=== PATIENT | female | born 1950 | race Caucasian/White ===

== ENCOUNTER 2017-06-25 07:08 | Outpatient (CLI) | payer MEDICARE, BC ==
--- NOTE | 2017-06-26 13:33 | Mammography Report ---
DATE OF SERVICE: 06/25/2017 DIGITAL BILATERAL SCREENING MAMMOGRAM: 06/25/2017 COMPARISON: Mammogram 06/04/2016. INDICATION: Screening mammography. FINDINGS: Bilateral CC and MLO breast views. FINDINGS: There are scattered fibroglandular densities. No dominant mass, architectural distortion, or concerning cluster of microcalcifications is seen. IMPRESSION: BIRADS CATEGORY 1-NEGATIVE. RECOMMENDATION: ANNUAL SCREENING MAMMOGRAM. STANDARD QUALIFYING STATEMENTS: 1. This examination was reviewed with the aid of Computer-Aided Detection (CAD) . 2. A negative or benign imaging report should not delay biopsy if clinically suspicious findings are present. Consider surgical consultation if warranted. More than 5% of cancers are not identified by imaging. 3. Dense breasts may obscure an underlying neoplasm. TD: 06/26/2017 14:31 MTDSeth
== END 2017-06-25 07:09 | disposition home or self-care (01) ==
LOC: DI 07:08
PROVIDERS: ATTEND Family Medicine
DX: Z12.31 Encounter for screening mammogram for malignant neoplasm of breast (principal)
CPT/HCPCS: 77067

== ENCOUNTER 2017-09-23 08:00 | Outpatient (CLI) | payer MEDICARE, BC ==
[2017-09-23 19:31] LABS: BILIRUBIN,URINE NEGATIVE (NEGATIVE); GLUCOSE, URINE (UA) NEGATIVE (NEGATIVE); KETONES,URINE (UA) NEGATIVE (NEGATIVE); LEUKOCYTE ESTERASE, URINE TRACE (NEGATIVE); NITRITE,URINE NEGATIVE (NEGATIVE); OCCULT BLOOD,URINE NEGATIVE (NEGATIVE); PROTEIN,URINE NEGATIVE (NEGATIVE); UROBILINOGEN,URINE 0.2 (NORMAL) E.U./dL (NORMAL)
[2017-09-23 19:47] LABS: BACTERIA,URINE None Seen /HPF (None Seen); CLARITY,URINE CLEAR (CLEAR); MUCUS,URINE Few Strands; RBC,URINE None Seen /HPF (0-5); SQUAMOUS EPITHELIAL CELL,UR NONE SEEN (<= Few)
== END 2017-09-23 08:01 | disposition home or self-care (01) ==
LOC: LAB.R 08:00
PROVIDERS: ATTEND Family Medicine
DX: M79.644 Pain in right finger(s) (principal)
CPT/HCPCS: 81001; 87086

== ENCOUNTER 2017-10-28 07:18 | Outpatient (CLI) | payer MEDICARE, BC ==
--- NOTE | 2017-10-28 09:38 | Ultrasound Report ---
THYROID ULTRASOUND: 10/28/2017 CLINICAL INDICATION: Nodules. COMPARISON: 09/08/2011. TECHNIQUE: Real-time scanning was performed with event representative static images obtained. FINDINGS: The right lobe measures 4.2 x 1.5 x 1.4 cm, and the left lobe measures 4.1 x 1.3 x 1.2 cm. The isthmus measures 3 mm. There are small spongiform nodules bilaterally, measuring up to 1.2 cm on the left and 0.5 cm on the right. No dominant suspicious nodule is seen. Note is made of left submandibular lymphadenopathy, with the largest lymph node measuring 1.7 x 1.3 x 1.2 cm. IMPRESSION: 1. SMALL SPONGIFORM THYROID NODULES, WHICH ARE NOT SUSPICIOUS BY HAZEL CRITERIA. 2. LEFT SUBMANDIBULAR LYMPHADENOPATHY. CONSIDER NECK CT WITH CONTRAST FOR FURTHER EVALUATION. TD: 10/28/2017 09:37
== END 2017-10-28 07:19 | disposition home or self-care (01) ==
LOC: DI 07:18
PROVIDERS: ATTEND Family Medicine
DX: E04.1 Nontoxic single thyroid nodule (principal); R59.0 Localized enlarged lymph nodes
CPT/HCPCS: 76536

== ENCOUNTER 2018-10-30 07:38 | Outpatient (CLI) | payer MEDICARE, BC ==
[2018-10-30] MEDS ORDERED: IOVERSOL 320 100 ML VIAL IVP ONE ×2 (08:06→08:23)
--- NOTE | 2018-10-31 23:01 | CT Report ---
Reason: LOCALIZED SWELLING, MASS AND LUMP, NECK Procedure Date: 10/30/2018 Accession Number: [id number] / [id number] Procedure: CT - SOFT TISSUE NECK W CPT Code: FULL RESULT: EXAM: CT SOFT TISSUE NECK WITH CONTRAST. EXAM DATE: 10/30/2018 08:12 AM. HISTORY: COMPARISONS: None. TECHNIQUE: Routine soft tissue neck CT protocol. Reconstructions: Coronal and sagittal. IV contrast: OPTI 320 80 ML. In accordance with CT protocol optimization, one or more of the following dose reduction techniques were utilized for this exam: automated exposure control, adjustment of mA and/or KV based on patient size, or use of iterative reconstructive technique. FINDINGS: Visualized Intracranial Contents: Unremarkable. Orbits: Symmetric and unremarkable. Sinuses: Visualized paranasal sinuses and mastoid air cells are clear. Oral cavity: The visualized oral cavity is unremarkable. The floor of the mouth is symmetric. Pharynx: Pharyngeal mucosa is unremarkable. The infratemporal fossa, parapharyngeal spaces, and retropharyngeal space are unremarkable. The base of the tongue is symmetric and unremarkable. The airway is patent. Larynx: Larynx and supraglottic airway are patent without mass lesion. Vocal cords are symmetric. The visualized trachea is unremarkable. Parotid and Submandibular Glands: Symmetric and unremarkable. Lymph Nodes: There are borderline enlarged lymph nodes in the left side of the neck at level II contiguous with the left submitted. These are contiguous with the lateral aspect of the left submandibular gland. Short axis diameter of these lymph nodes measures up to 12 mm. There are bilateral jugular digastric lymph nodes which measure up to 11 mm in short axis diameter. There are no central necrotic lymph nodes. Soft tissues: Soft tissues are unremarkable. No mass lesion or abnormal enhancement. Vascular Structures: Unremarkable. Thyroid Gland: There is a small 8 mm nodule in the left lobe of the thyroid. Lung: The visualized lung apices are clear. Bones: No evidence of acute fracture or malalignment. There are mild degenerative changes. Other: None. IMPRESSION: 1. Borderline sized lymph nodes contiguous with the left submandibular gland. Lymph nodes may be reactive to recent inflammation/infection. RADIA
== END 2018-10-30 07:39 | disposition home or self-care (01) ==
LOC: DI 07:38
PROVIDERS: ATTEND Family Medicine
DX: R22.1 Localized swelling, mass and lump, neck (principal); R93.89 Abnormal findings on diagnostic imaging of other specified body structures
CPT/HCPCS: 70491; Q9967

== ENCOUNTER 2018-11-17 09:11 | Outpatient (CLI) | payer MEDICARE, BC ==
--- NOTE | 2018-11-17 12:18 | Mammography Report ---
Reason: SCREENING MAMMO Procedure Date: 11/17/2018 Accession Number: [id number] / [id number] Procedure: GERALDINE - Screening Mammo w/Rigoberto CPT Code: FULL RESULT: EXAM: Screening Mammo w/Rigoberto DATE: 11/17/2018 9:51 AM CLINICAL HISTORY: Routine screening TECHNIQUE: (B) - Bilateral CC and MLO views were obtained. COMPARISON: 06/25/2017, 06/04/2016, 05/15/2015 and 01/03/2014 PARENCHYMAL PATTERN: (A) - The breasts demonstrate scattered fibroglandular densities bilaterally. FINDINGS: No significant interval change. There are no suspicious masses, calcifications, or areas of distortion. IMPRESSION: Negative examination. BI-RADS category 1. RECOMMENDATION: (ANNUAL) - Recommend routine annual screening mammography. BI-RADS CATEGORY: 1 negative STANDARD QUALIFYING STATEMENTS: 1. This examination was not reviewed with the aid of Computer-Aided Detection (CAD). 2. A negative or benign imaging report should not preclude biopsy if clinically suspicious findings are present. 3. Dense breasts may obscure an underlying neoplasm. 4. This examination was reviewed with the aid of 3D breast imaging (tomosynthesis).
== END 2018-11-17 09:12 | disposition home or self-care (01) ==
LOC: DI 09:11
PROVIDERS: ATTEND Family Medicine
DX: Z12.31 Encounter for screening mammogram for malignant neoplasm of breast (principal)
CPT/HCPCS: 77063; 77067

== ENCOUNTER 2019-08-19 07:00 | Outpatient (CLI) | payer MEDICARE, BC ==
[2019-08-19 19:53] LABS: % IRON SATURATION 3 % (20-50); IRON 13 ug/dL (28-170); TOTAL IRON BINDING CAPACITY 461 ug/dL (250-450); TRANSFERRIN 329 mg/dL (192-382)
== END 2019-08-19 23:59 | disposition home or self-care (01) ==
LOC: LAB.WCP 07:00
PROVIDERS: ATTEND Family Medicine
DX: D50.9 Iron deficiency anemia, unspecified (principal)
CPT/HCPCS: 36415; 82728; 83540; 84466

== ENCOUNTER 2019-10-12 07:00 | Outpatient (CLI) | payer MEDICARE, BC ==
[2019-10-12 12:39] LABS: BASOPHILS # (AUTO) 0.1 10^3/uL (0.0-0.1); BASOPHILS % (AUTO) 0.9 %; EOSINOPHILS # (AUTO) 0.1 10^3/uL (0.0-0.7); EOSINOPHILS % (AUTO) 1.2 %; HGB - HEMOGLOBIN 13.9 g/dL (12.0-16.0); LYMPHOCYTES # (AUTO) 1.6 10^3/uL (1.5-3.5); LYMPHOCYTES % (AUTO) 24.4 %; MEAN CORPUSCULAR VOLUME 76.7 fL (81.0-99.0); MEAN PLATELET VOLUME 10.3 fL (7.9-10.8); MONOCYTES # (AUTO) 0.6 10^3/uL (0.0-1.0); MONOCYTES % (AUTO) 8.6 %; NEUTROPHILS # (AUTO) 4.3 10^3/uL (1.5-6.6); NEUTROPHILS % (AUTO) 64.6 %; PLT - PLATELET COUNT 348 10^3/uL (130-450); RED BLOOD COUNT 6.05 10^6/uL (4.20-5.40); RED CELL DISTRIBUTION WIDTH 22.2 % (12.0-15.0); WHITE BLOOD COUNT 6.6 x10^3/uL (4.8-10.8)
[2019-10-12 12:50] LABS: ALBUMIN 4.7 g/dL (3.2-5.5); ALBUMIN/GLOBULIN RATIO 1.6 (1.0-2.2); BILIRUBIN,TOTAL 0.5 mg/dL (0.2-1.0); CALCIUM 10.4 mg/dL (8.5-10.3); CREATININE 1.2 mg/dL (0.4-1.0); TOTAL PROTEIN 7.6 g/dL (6.7-8.2)
== END 2019-10-12 23:59 | disposition home or self-care (01) ==
LOC: LAB.WCP 07:00
PROVIDERS: ATTEND Family Medicine
DX: R10.32 Left lower quadrant pain (principal)
CPT/HCPCS: 36415; 80053; 81002; 85025

== ENCOUNTER 2019-10-19 07:29 | Outpatient (CLI) | payer MEDICARE, BC ==
--- NOTE | 2019-10-19 08:29 | Ultrasound Report ---
Reason: LLQ ABDOMINAL PAIN Procedure Date: 10/19/2019 Accession Number: [id number] / [id number] Procedure: US - Pelvic w/Transvaginal CPT Code: Final Report FULL RESULT: EXAM: PELVIC ULTRASOUND EXAM DATE: 10/19/2019 08:10 AM. CLINICAL HISTORY: LLQ abdominal pain. COMPARISON: UNKNOWN 04/25/2010 8:37 AM. TECHNIQUE: Realtime transabdominal pelvic scan performed to identify the uterus and adnexa and as an overview of other pelvic structures, followed by transvaginal scan to provide greater detail of the uterus and adnexa, with static image documentation. FINDINGS: Uterus: 5.6 x 2.3 x 3.0 cm, volume 20.2 cc. Anteverted position. Normal overall size and echotexture. Masses: Echogenic focus with hypoechoic shadowing in the myometrium may represent calcification, possibly related to a small fibroid which is not directly visualized. Endometrium: 3 mm. Normal. Cervix: Unremarkable. Right Ovary: 1.5 x 1.1 x 1.8 cm, volume 0.9 cc. Normal echotexture and blood flow. Left Ovary: 2.0 x 1.9 x 1.1 cm, volume 2.2 cc. Normal echotexture and blood flow. Free Fluid: Small amount of free fluid is detected. Other: None. IMPRESSION: Small amount of free fluid with the underlying etiology not visualized. RADIA
== END 2019-10-19 07:30 | disposition home or self-care (01) ==
LOC: DI 07:29
PROVIDERS: ATTEND Family Medicine
DX: R10.32 Left lower quadrant pain (principal)
CPT/HCPCS: 76830; 76856

== ENCOUNTER 2019-10-21 07:04 | Outpatient (CLI) | payer MEDICARE, BC ==
[2019-10-21] MEDS ORDERED: IOVERSOL 320 50 ML VIAL ONE (07:12)
[2019-10-21] MEDS ORDERED: IOVERSOL 320 100 ML VIAL IVP ONE ×2 (07:13→08:24)
[2019-10-21] MEDS ORDERED: IOVERSOL 320 50 ML VIAL PO ONE (08:24)
--- NOTE | 2019-10-21 08:49 | CT Report ---
Reason: ABD PAIN,LLQ Procedure Date: 10/21/2019 Accession Number: [id number] / [id number] Procedure: CT - Abdomen/Pelvis W CPT Code: Final Report FULL RESULT: EXAM: CT ABDOMEN AND PELVIS EXAM DATE: 10/21/2019 08:22 AM. CLINICAL HISTORY: Left lower quadrant pain for 3 weeks. COMPARISONS: None. TECHNIQUE: Routine helical CT imaging was performed through the abdomen and pelvis. IV contrast: 90 mL Optiray 320. Enteric contrast: No. Reconstructions: Coronal and sagittal. In accordance with CT protocol optimization, one or more of the following dose reduction techniques were utilized for this exam: automated exposure control, adjustment of mA and/or KV based on patient size, or use of iterative reconstructive technique. FINDINGS: Lung Bases: Unremarkable. Liver: Normal. No masses. Gallbladder/Bile Ducts: Unremarkable. Spleen: Normal. Pancreas: Normal. Adrenal Glands: Normal. Kidneys: There is mild left hydronephrosis and hydroureter, most likely secondary to partial obstruction of the left ureter and the left retroperitoneal mass. There is mild right hydronephrosis as well. There are no visible calculi. There are bilateral renal cysts. Peritoneal Cavity/Bowel: There is nodular soft tissue density material in the retroperitoneum, predominantly in the left para-aortic and aortocaval regions. Some of the material appears hyperdense, measuring up to 65-70 HU. There is fat stranding extending along the aorta to the iliac arteries. The findings are suggestive of retroperitoneal lymphadenopathy. The presumed lymph nodes measures approximately 2.4 x 3.6 x 10.6 cm along the left para-aortic region, and 3.1 x 1.8 cm on image 3/43, anterior to the aorta and IVC. Similar, enlarged lymph nodes are seen in the root of the mesentery, with poorly defined margins. There is fat stranding along the root of the mesentery. There is a large hiatus hernia, involving the fundus and most of the body of the stomach. The small and large bowel appear otherwise unremarkable. There is a right retrocrural lymph node image 3/ measuring approximately 17 x 15 mm. Pelvic Organs: Normal. The bladder and visualized pelvic organs are within normal limits. Vasculature: No aneurysms or other significant abnormality. Bones: No significant abnormality. Other: None. IMPRESSION: 1. Retroperitoneal mass, presumably lymphadenopathy involving the para-aortic, aortocaval, retrocrural and mesenteric root lymph nodes. Mild bilateral hydronephrosis and hydroureter secondary to ureteric compression by the mass. The findings suggest neoplastic pathology such as lymphoma. The differential diagnosis includes metastatic lymphadenopathy. 2. Large hiatus hernia. RADIA
== END 2019-10-21 07:05 | disposition home or self-care (01) ==
LOC: DI 07:04
PROVIDERS: ATTEND Family Medicine
DX: R19.09 Other intra-abdominal and pelvic swelling, mass and lump (principal); N13.1 Hydronephrosis with ureteral stricture, not elsewhere classified; K44.9 Diaphragmatic hernia without obstruction or gangrene
CPT/HCPCS: 74177; Q9967

== ENCOUNTER 2022-08-21 08:00 | Outpatient (CLI) | payer MEDICARE, BC | END 2022-08-21 23:59 | disposition home or self-care (01) | LOC: LAB.N 08:00 | PROVIDERS: ATTEND Family Medicine | DX: R19.7 Diarrhea, unspecified (principal) | CPT/HCPCS: 87045; 87046; 87329; 87427; 87493 ==

== ENCOUNTER 2023-02-02 08:29 | Day surgery (SDC) | payer MEDICARE, BC ==
[2023-02-02 08:57] LABS: BASOPHILS # (AUTO) 0.1 10^3/uL (0.0-0.1); BASOPHILS % (AUTO) 0.4 %; EOSINOPHILS % (AUTO) 0.2 %; HCT - HEMATOCRIT 43.6 % (37.0-47.0); HGB - HEMOGLOBIN 14.2 g/dL (12.0-16.0); LYMPHOCYTES # (AUTO) 0.9 10^3/uL (1.5-3.5); LYMPHOCYTES % (AUTO) 5.6 %; MEAN CORPUSCULAR HEMOGLOBIN 26.5 pg (27.0-31.0); MEAN CORPUSCULAR HGB CONC 32.6 g/dL (32.0-36.0); MEAN CORPUSCULAR VOLUME 81.5 fL (81.0-99.0); MEAN PLATELET VOLUME 9.5 fL (7.9-10.8); MONOCYTES # (AUTO) 0.7 10^3/uL (0.0-1.0); MONOCYTES % (AUTO) 4.3 %; NEUTROPHILS % (AUTO) 89.1 %; PLT - PLATELET COUNT 320 10^3/uL (130-450); RED BLOOD COUNT 5.35 10^6/uL (4.20-5.40); WHITE BLOOD COUNT 15.7 x10^3/uL (4.8-10.8)
--- NOTE | 2023-02-02 09:01 | ED Physician Documentation ---
PD HPI ABD PAIN - Stated complaint Stated Complaint: STOMACH PX - Chief complaint Chief Complaint: Abd Pain - History obtained from History obtained from: Patient - History of Present Illness Timing - onset: Last night, Yesterday Timing - details: Gradual onset, Still present Quality: Cramping, Aching, Pain Location: Periumbilical, Suprapubic, LLQ Radiation: Lower back. No: Left flank, Right flank Improved by: Laying still Worsened by: Moving, Palpation Associated symptoms: Nausea, Loss of appetite. No: Fever, Diarrhea, Constipation, Dysuria Similar symptoms before: Has not had sx before Recently seen: Not recently seen Review of Systems Constitutional: reports: Chills. denies: Fever Nose: denies: Rhinorrhea / runny nose, Congestion Throat: denies: Sore throat Respiratory: denies: Cough GI: reports: Abdominal Pain, Nausea. denies: Vomiting, Constipation, Diarrhea : denies: Dysuria PD PAST MEDICAL HISTORY - Past Medical History Past Medical History: Yes Cardiovascular: Hypertension GI: GERD, Other (hiatal hernia surgery) : Kidney stones Other Past Medical History: non hodgskins lymphoma - Past Surgical History Past Surgical History: Yes - Present Medications Home Medications: Ambulatory Orders Medication Instructions Recorded Confirmed Losartan Potassium 50 mg PO DAILY 02/02/23 02/02/23 Omeprazole 40 mg PO DAILY 02/02/23 02/02/23 Venlafaxine [Effexor] 37.5 mg PO DAILY 02/02/23 02/02/23 amLODIPine [Norvasc] 10 mg PO DAILY 02/02/23 02/02/23 - Allergies Allergies/Adverse Reactions: Allergies Allergy/AdvReac Type Severity Reaction Status Date / Time No Known Drug Allergies Allergy Verified 02/02/23 08:38 - Social History Does the pt smoke?: No Smoking Status: Never smoker Does the pt drink ETOH?: No Does the pt have substance abuse?: No - Immunizations Immunizations are current?: Yes PD ED PE NORMAL - Vitals Vital signs reviewed: Yes - General General: Alert and oriented X 3, Well developed/nourished, Other (appears in pain) - Neck Neck: Supple, no meningeal sign - Cardiac Cardiac: RRR, No murmur - Respiratory Respiratory: Clear bilaterally - Abdomen Abdomen: Normal bowel sounds, Soft, Non distended, No organomegaly, Other (Tender in the Periumbilical to suprapubic and left lower abdomen. Slightly tender in the right. There is percussion and some rebound tenderness in the lower abdomen.) - Female Female : Deferred - Rectal Rectal: Deferred - Back Back: No CVA TTP - Derm Derm: Normal color, Warm and dry - Extremities Extremities: No deformity, No edema, No calf tenderness / cord - Neuro Neuro: Alert and oriented X 3, No motor deficit, Normal speech Results - Vitals Vitals: Vital Signs - 24 hr 02/02/23 02/02/23 02/02/23 08:38 10:41 12:00 Temperature 36.5 C Heart Rate 93 76 70 Respiratory 17 16 Rate Blood Pressure 129/98 H 120/76 117/73 O2 Saturation 98 100 99 If not protocol 2 : Oxygen Flow, liters/minute 02/02/23 02/02/23 02/02/23 14:00 16:00 17:36 Temperature 36.5 C Heart Rate 85 80 80 Respiratory 16 16 Rate Blood Pressure 136/95 H 129/79 129/79 O2 Saturation 100 97 97 If not protocol : Oxygen Flow, liters/minute Oxygen O2 Source Room air - Labs Labs: Laboratory Tests 02/02/23 02/02/23 02/02/23 08:50 08:50 16:05 WBC 15.7 H RBC 5.35 Hgb 14.2 Hct 43.6 MCV 81.5 MCH 26.5 L MCHC 32.6 RDW 14.0 Plt Count 320 MPV 9.5 Neut # (Auto) 14.0 H Lymph # (Auto) 0.9 L Milam # (Auto) 0.7 Eos # (Auto) 0.0 Baso # (Auto) 0.1 Absolute Nucleated RBC 0.00 Nucleated RBC % 0.0 Sodium 137 Potassium 3.5 Chloride 103 Carbon Dioxide 27 Anion Gap 7.0 BUN 18 Creatinine 0.7 Estimated GFR (MDRD) 82 L Glucose 139 H Calcium 10.4 H Total Bilirubin 0.4 AST 14 ALT 15 Alkaline Phosphatase 121 Total Protein 7.2 Albumin 4.5 Globulin 2.7 Albumin/Globulin Ratio 1.7 Lipase 19 Urine Color YELLOW Urine Clarity CLEAR Urine pH 6.0 Ur Specific [place] 1.020 Urine Protein NEGATIVE Urine Glucose (UA) NEGATIVE Urine Ketones NEGATIVE Urine Occult Blood NEGATIVE Urine Nitrite NEGATIVE Urine Bilirubin NEGATIVE Urine Urobilinogen 0.2 (NORMAL) Ur Leukocyte Esterase NEGATIVE Ur Microscopic Review NOT INDICATED Urine Culture Comments NOT INDICATED - Rads (name of study) savage/pelvic MRI Relevant Findings:: Prelim report reviewed (appendicitis 9 mm iwth wall thickening and appendicoliths. ), EMP independent interpretation of test PD Medical Decision Making - ED course Complexity details: considered differential (Lower abdominal pain and tenderness midline to more left of midline. However does have peritoneal signs and findings. We will check labs. Urinalysis as well.), d/w patient Reviewed Lab Results: Just prior to the patient being brought down for CT scan, the CT scanner broke. Alternative plan after discussion with the patient was to get an abdominal MRI which was available within the next couple of hours. This seems more efficient than trying to transfer at this point. The patient was in agreement. The patient subsequently did go to the MRI for abdominal and pelvic imaging. She had gotten IV fluids and pain medicine and antiemetics soon after arrival here and was comfortable during the ER stay. She did get a repeat dosing of Dilaudid to help maintain the lower pain level. The MRI showed apparent filling defects in the appendix consistent with appendicoliths as well as some edema and wall swelling. It was dilated at 9 mm. No intestinal findings otherwise. Diagnosis was appendicitis. Recheck of the abdomen at that point was more periumbilical to midline but she states it is starting to progress more to the right side. She still has some guarding on palpation and mild percussion tenderness periumbilical. I contacted Dr. Smiley who is on for surgery and she would come evaluate the patient. Drug Therapy Requiring Monitoring for Toxicity: Received IV fluids, Dilaudid, Zofran. Departure - Departure Disposition: ED Transfer to [facility] Clinical Impression: Abdominal pain, acute, bilateral lower quadrant, Appendicitis Condition: Stable
[2023-02-02 09:13] LABS: ALBUMIN 4.5 g/dL (3.2-5.5); ALBUMIN/GLOBULIN RATIO 1.7 (1.0-2.2); BILIRUBIN,TOTAL 0.4 mg/dL (0.2-1.0); CALCIUM 10.4 mg/dL (8.5-10.3); CREATININE 0.7 mg/dL (0.6-1.3); POTASSIUM 3.5 mmol/L (3.5-4.5); TOTAL PROTEIN 7.2 g/dL (6.4-8.9)
[2023-02-02] MEDS ORDERED: SODIUM CHLORIDE 0.9% 1,000 ML IV STA ×2 (09:39→16:01)
[2023-02-02] MEDS ORDERED: KETOROLAC 15 MG/ML VIAL IVP STA (09:41)
[2023-02-02] MEDS ORDERED: HYDROmorphone 1 MG/ML CARPUJECT IVP STA ×2 (09:41→14:14)
[2023-02-02] MEDS ORDERED: ONDANSETRON 4 MG/2 ML VIAL IVP STA (09:42)
--- NOTE | 2023-02-02 14:42 | MRI Report ---
PROCEDURE: ABDOMEN WO INDICATIONS: left abd pain since yest CONTRAST: None TECHNIQUE: Coronal ultra fast SE, axial 2D spoiled GE in- and [id number]; axial breath-hold T2 fast SE. Opti onal diffusion weighted imaging and ADC may be performed. COMPARISON: MR pelvis same day FINDINGS: Lung bases : No pleural effusion. Liver: Unremarkable noncontrast appearance. Gallbladder and biliary tree: No stones or wall thickening. No biliary dilation. Spleen: No splenomegaly. Pancreas: No pancreatic ductal dilation. Adrenals: No definite adrenal nodule. Kidneys and ureters: No hydronephrosis. No renal cystic lesion which requires follow up. No solid mas s. Bowel and peritoneum: [id number] hiatal hernia. No bowel distension. No substantial free fl uid. Lymph nodes: No central or retroperitoneal adenopathy. Vessels: No infrarenal aortic aneurysm. Bones: No aggressive osseous abnormality. IMPRESSION: 1. No definite acute appearing abnormality identified within the abdomen on this noncontrast exam. 2. Small-moderate hiatal hernia. 3. Same-day MRI of the pelvis is dictated separately. Reviewed by: Bishnu Sullivan MD on 02/02/2023 2:41 PM PDT Approved by: Bishnu Sullivan MD on 02/02/2023 2:41 PM PDT Station ID: [id number]
--- NOTE | 2023-02-02 15:04 | MRI Report ---
PROCEDURE: PELVIS WO INDICATIONS: left abd pain CONTRAST: None TECHNIQUE: Coronal ultra fast SE, sagittal breath-hold T2 FSE; axial T1 FSE with and without fat saturation thro ugh the pelvis. Optional diffusion weighted imaging and ADC may be performed. COMPARISON: MR abdomen same day, pelvic ultrasound 10/19/2019 FINDINGS: Urinary system: Bladder wall is normal in thickness. Distal ureters are non distended. Nodes and vessels: No pelvic or inguinal adenopathy by size criteria. Iliac vessels are normal in s ize. Bowel and peritoneum: The appendix is prominent in caliber, 9 mm with several filling defects within the lumen likely appendicoliths present (for example sagittal T2 series 7 image 26). There is possibl e/equivocal periappendiceal edema on several sequences. No periappendiceal drainable fluid collection identified. Trace amount of nonspecific pelvic free fluid is also present. Visualized large and sma ll bowel is non-dilated. No definite MR evidence of acute sigmoid diverticulitis. Bones: Marrow demonstrates unremarkable overall signal. IMPRESSION: 1. The appendix is prominent in caliber with possible/equivocal periappendiceal edema/fluid present. Findings raise the possibility of early acute appendicitis but could be artifactual. Clinical correla tion is recommended, short interval repeat imaging could be obtained as clinically indicated. 2. Same-day MR abdomen is dictated separately. Reviewed by: Bishnu Sullivan MD on 02/02/2023 3:03 PM PDT Approved by: Bishnu Sullivan MD on 02/02/2023 3:03 PM PDT Station ID: [id number]
[2023-02-02 16:22] LABS: BILIRUBIN,URINE NEGATIVE (NEGATIVE); GLUCOSE, URINE (UA) NEGATIVE (NEGATIVE); KETONES,URINE (UA) NEGATIVE (NEGATIVE); LEUKOCYTE ESTERASE, URINE NEGATIVE (NEGATIVE); NITRITE,URINE NEGATIVE (NEGATIVE); OCCULT BLOOD,URINE NEGATIVE (NEGATIVE); PROTEIN,URINE NEGATIVE (NEGATIVE); UROBILINOGEN,URINE 0.2 (NORMAL) E.U./dL (NORMAL)
[2023-02-02 16:25] LABS: CLARITY,URINE CLEAR (CLEAR)
[2023-02-02] MEDS ORDERED: MORPHINE 2 MG/ML CARPUJECT IVP PRN ×2 (17:31→17:37)
[2023-02-02] MEDS ORDERED: ONDANSETRON 4 MG/2 ML VIAL IVP PRN ×3 (17:31→19:18)
[2023-02-02] MEDS ORDERED: ACETAMINOPHEN 1,000 MG/100 ML 1,000 MG/100 ML BAG IV ONE ×2 (17:33→17:53)
[2023-02-02] MEDS ORDERED: ceFAZolin (2G) 2 GM in SODIUM CHLORIDE 0.9% MINIBAG 100 ML IV ONE (17:33)
--- NOTE | 2023-02-02 17:34 | SURGERY HX AND PHYSICAL(T) ---
Surgical History & Physical - Chief Complaint/HPI Chief Complaint: I've been better History of Present Illness: The patient notes that cute onset of abdominal discomfort at approximately 6:00 yesterday afternoon. The pain was initially in her epigastrium and kept her up most of the night. This morning, the pain migrated to the left lower quadrant, and later today, and migrated to the right lower quadrant where it remains at this time. She describes the pain as sharp and intermittent in nature. It is made worse with activity and palpation. It is made better with pain medication and lying still. She has never had similar pain in the past. She has felt a little chilled over the last couple of hours. Prior to coming in today she reports nausea but no vomiting. She denies any constipation or diarrhea. Her last oral intake was 5:00 yesterday evening. - PMH/PSH/Social Hx Does the pt have a hx of MRSA?: No Cardiovascular: Hypertension Gastrointestinal: GERD, Hiatal hernia Is Patient ?: No Urinary: Kidney stones PMH Other: non hodgskins lymphoma General: Hiatal hernia repair Eyes Ears Nose Throat (EENT): Other (Bilateral blepharoplasty approximately 1 week ago) Smoking Status: Never smoker Does the pt drink ETOH?: No Does the pt have substance abuse?: No - Family Hx Family Hx: Unremarkable - Home Meds and Allergies Home Medications: Losartan Potassium 50 mg PO DAILY 02/02/23 Omeprazole 40 mg PO DAILY 02/02/23 Venlafaxine [Effexor] 37.5 mg PO DAILY 02/02/23 amLODIPine [Norvasc] 10 mg PO DAILY 02/02/23 Allergies/Adverse Reactions: Allergies Allergy/AdvReac Type Severity Reaction Status Date / Time No Known Drug Allergies Allergy Verified 02/02/23 08:38 - Review of Systems Constitutional: Other (A complete 10 point review of symptoms is otherwise negative except for that noted in HPI and PMH.) - Vital Signs Heart Rate: 80 Blood Pressure: 129/79 Temperature: 36.5 C Respiratory Rate: 16 O2 Saturation: 97 Weight (kg): 81.647 kg Height: 1.68 m - Physical Exam Comments/Other: GEN: No acute distress, appears younger than stated age, alert and oriented HEENT: NCAT, MMM, EOMI NEURO: CN II-XII grossly intact, no obvious focal deficits CV: RRR, no murmer appreciated PULM: Nonlabored, on room air ABD: soft, exquisite right lower quadrant tenderness to palpation, mild left lower quadrant tenderness to palpation, otherwise nontender, no rebound or guarding, negative Rovsing sign, negative psoas sign CIRCULATORY: no clubbing, cyanosis, or edema SKIN: no lesions appreciated LYMPH: no obvious lymphadenopathy MSK: 4/4 strength in all extremities PSYCH: Affect is appropriate - Patient Review Patient Review: Problems were reviewed with the patient during this visit. Medications were reviewed with the patient during this visit. Allergies were reviewed this patient during this visit. Pertinent Tests Reviewed: All pertitent test for this patient were reviewed. - Assessment & Plan Assessment and Plan: This is a 72-year-old female with: 1. Acute appendicitis The patient's history, physical exam, laboratory studies, and imaging are consistent with this diagnosis. The patient had an MRI of the abdomen and pelvis as CT scan is not currently available at our facility. This demonstrated a mildly dilated appendix with possible appendicolith, and slight inflammation surrounding the appendix consistent with early acute appendicitis. There are no surrounding fluid collections. There is no free air.I personally reviewed the images and report from the study. -I discussed the patient's laboratory and imaging findings with her. We discussed options for the care of acute appendicitis including management with antibiotics alone or surgery. Laparoscopic appendectomy carries with it risks including but not limited to bleeding, infection, damage to surrounding structures, and the need for further surgeries or procedures. We discussed the benefit of surgery being a shorter hospital stay and definitive treatment, while antibiotics alone may avoid surgery. The patient voiced understanding, her questions were answered, and she wished to proceed with surgery at this time. A consent was signed by the patient prior to surgery. The patient will remain n.p.o. until after surgery. I anticipate the patient will likely discharge to home tomorrow. She will need to follow-up with me in clinic in 2 weeks. 2. Non-Hodgkin's lymphoma, in remission; -No acute treatment needed 3. Hypertension, depression, GERD -I will continue the patient's home medications after surgery. The patient will be transferred to the floor after surgery as a surgical outpatient, with likely discharge tomorrow morning.
[2023-02-02] MEDS ORDERED: ATROPINE ABBOJECT 1 MG/10 ML SYRINGE IVP PRN (17:37)
[2023-02-02] MEDS ORDERED: HYDROmorphone 0.5 MG/0.5 ML SYRINGE IVP PRN ×2 (17:37→19:18)
[2023-02-02] MEDS ORDERED: NALOXONE 0.4 MG/ML VIAL IVP PRN (17:37)
[2023-02-02] MEDS ORDERED: fentaNYL 100 MCG/2 ML VIAL IVP PRN (17:37)
[2023-02-02] MEDS ORDERED: PROPOFOL 200 MG/20 ML VIAL IVP ONE (17:41)
[2023-02-02] MEDS ORDERED: ROCURONIUM 50 MG/5 ML VIAL ONE ×2 (17:41→18:54)
[2023-02-02] MEDS ORDERED: fentaNYL 100 MCG/2 ML VIAL ONE (17:42)
--- NOTE | 2023-02-02 17:43 | ANESTHESIA ---
Pre-Anesthesia VS, & Labs - Diagnosis Acute appendicitis - Procedure Lap appy Vital Signs: Temp Pulse Resp BP Pulse Ox O2 Flow Rate 36.5 C 80 16 129/79 97 2 02/02/23 17:40 02/02/23 17:40 02/02/23 17:40 02/02/23 17:40 02/02/23 17:40 02/02/23 10:41 Height: 5 ft 6 in Weight (kg): 81.647 kg Body Mass Index: 29.0 BMI Classification: Overweight - NPO >8 hours - Is Patient ?: No - Lab Results Current Lab Results: Laboratory Tests 02/02/23 08:50: Sodium 137, Potassium 3.5, Chloride 103, Carbon Dioxide 27, Anion Gap 7.0, BUN 18, Creatinine 0.7, Estimated GFR (MDRD) 82 L, Glucose 139 H, Calcium 10.4 H, Total Bilirubin 0.4, AST 14, ALT 15, Alkaline Phosphatase 121, Total Protein 7.2, Albumin 4.5, Globulin 2.7, Albumin/Globulin Ratio 1.7, Lipase 19 02/02/23 08:50: WBC 15.7 H, RBC 5.35, Hgb 14.2, Hct 43.6, MCV 81.5, MCH 26.5 L, MCHC 32.6, RDW 14.0, Plt Count 320, MPV 9.5, Neut # (Auto) 14.0 H, Lymph # (Auto) 0.9 L, Davis # (Auto) 0.7, Eos # (Auto) 0.0, Baso # (Auto) 0.1, Absolute Nucleated RBC 0.00, Nucleated RBC % 0.0 Lab results reviewed: Yes Fish Bones: 02/02/23 08:50 02/02/23 08:50 Home Medications and Allergies Home Medications: Ambulatory Orders Losartan Potassium 50 mg PO DAILY 02/02/23 Omeprazole 40 mg PO DAILY 02/02/23 Venlafaxine [Effexor] 37.5 mg PO DAILY 02/02/23 amLODIPine [Norvasc] 10 mg PO DAILY 02/02/23 Active Medications Atropine Sulfate (Atropine Abboject 1 Mg/10 Ml Syringe) 0.5 mg IVP Q5M PRN PRN Reason: Bradycardia Stop: 02/03/23 17:37 Fentanyl (Fentanyl 100 Mcg/2 Ml Vial) 25 - 50 mcg IVP Q5M PRN PRN Reason: BREAKTHROUGH PAIN (2nd Choice) Stop: 02/03/23 17:37 Hydromorphone HCl (Hydromorphone 0.5 Mg/0.5 Ml Syringe) 0.2 - 0.6 mg IVP Q5M PRN PRN Reason: PAIN (First Choice) Stop: 02/03/23 17:37 Sodium Chloride (Normal Saline 0.9%) 1,000 mls @ 500 mls/hr IV .Q2H STA Stop: 02/02/23 18:00 Last Admin: 02/02/23 16:13 Dose: 500 mls/hr Cefazolin Sodium 2 gm/ Sodium (Chloride) 100 mls @ 200 mls/hr IV ONCE ONE Stop: 02/02/23 18:02 Metronidazole (Flagyl 500 Mg/100 Ml) 500 mg in 100 mls @ 100 mls/hr IV ONCE CLAUDIA Stop: 02/02/23 18:01 Acetaminophen (Acetaminophen) 1,000 mg in 100 mls @ 400 mls/hr IV ONCE ONE Stop: 02/02/23 17:47 Sodium Chloride (Normal Saline 0.9%) 1,000 mls @ 125 mls/hr IV .Q8H CLAUDIA Lactated Ringer's (Lr) 1,000 mls @ 100 mls/hr IV .Q10H CLAUDIA Stop: 02/03/23 03:59 Morphine Sulfate (Morphine 2 Mg/Ml Carpuject) 4 mg IVP Q2HR PRN PRN Reason: PAIN >8 Morphine Sulfate (Morphine 2 Mg/Ml Carpuject) 2 - 4 mg IVP Q5M PRN PRN Reason: PAIN (3rd Choice) Stop: 02/03/23 17:37 Naloxone HCl (Naloxone 0.4 Mg/Ml Vial) 0.1 mg IVP Q2M PRN PRN Reason: RESP RATE <8 Stop: 02/03/23 17:37 Ondansetron HCl (Ondansetron 4 Mg/2 Ml Vial) 4 mg IVP Q6HR PRN PRN Reason: Nausea / Vomiting Ondansetron HCl (Ondansetron 4 Mg/2 Ml Vial) 4 mg IVP ONCE PRN PRN Reason: N/V (First Choice) Stop: 02/03/23 17:37 Losartan Potassium 50 mg PO DAILY 02/02/23 Omeprazole 40 mg PO DAILY 02/02/23 Venlafaxine [Effexor] 37.5 mg PO DAILY 02/02/23 amLODIPine [Norvasc] 10 mg PO DAILY 02/02/23 Allergies/Adverse Reactions: Allergies Allergy/AdvReac Type Severity Reaction Status Date / Time No Known Drug Allergies Allergy Verified 02/02/23 08:38 Anes History & Medical History - Anesthetic History Anesthesia Complications: reports: No previous complications - Medical History Cardiovascular: reports: Hypertension Pulmonary: reports: None Gastrointestinal: reports: GERD (poorly controlled) Urinary: reports: Kidney stones Neuro: reports: None Musculoskeletal: reports: None Endocrine/Autoimmune: reports: None Blood Disorders: reports: None Skin: reports: None Smoking Status: Never smoker Psychosocial: reports: No issues indicated History of Cancer?: Yes (non hodgkins lymphoma s/p chemo) Other Past Medical History: non hodgskins lymphoma - Surgical History General: reports: Hiatal hernia repair Eyes Ears Nose Throat (EENT): reports: Other (Bilateral blepharoplasty approximately 1 week ago) Other Past Surgical History: port placement and removal Exam General: Alert, Oriented x3, Cooperative, No acute distress Dental: WNL Mouth Openin Fingerbreadth Neck Mobility: Normal Mallampati classification: II Thyromental Distance: 4-6 cm Mental/Cognitive Status: Alert/Oriented X3, Normal for patient Plan Anesthesia Type: General Consent for Procedure(s) Verified and Reviewed: Yes Code Status: Attempt Resuscitation ASA classification: 2-Mild systemic disease Is this case an emergency?: Yes
[2023-02-02] MEDS ORDERED: ceFAZolin 2 GM VIAL ONE (17:53)
[2023-02-02] MEDS ORDERED: metroNIDAZOLE 500 MG/100 ML 500 MG/100 ML BAG ONE (17:53)
[2023-02-02] MEDS ORDERED: metroNIDAZOLE 500 MG/100 ML 500 MG/100 ML BAG IV SCH (18:00)
[2023-02-02] MEDS ORDERED: LACTATED RINGERS 1,000 ML IV SCH (18:00)
[2023-02-02] MEDS ORDERED: ONDANSETRON 4 MG/2 ML VIAL ONE (18:18)
[2023-02-02] MEDS ORDERED: LIDOCAINE 1%-EPI 1:100000 20 ML MDV ONE (18:24)
[2023-02-02] MEDS ORDERED: BUPIVACAINE 0.25% PF 30 ML VIAL ONE (18:25)
[2023-02-02] MEDS ORDERED: ePHEDrine 50 MG/ML VIAL IVP ONE (18:37)
[2023-02-02] MEDS ORDERED: LIDOCAINE 1%-EPI 1:100000 20 ML MDV SUBQ ONE (18:50)
[2023-02-02] MEDS ORDERED: BUPIVACAINE 0.25% PF 30 ML VIAL SUBQ ONE (18:51)
[2023-02-02] MEDS ORDERED: DEXAMETHASONE 4 MG/ML VIAL ONE (18:57)
[2023-02-02] MEDS ORDERED: SUGAMMADEX 200 MG/2 ML VIAL IVP ONE (19:17)
[2023-02-02] MEDS ORDERED: HYDROmorphone 1 MG/ML CARPUJECT ONE (19:17)
[2023-02-02] MEDS ORDERED: LACTATED RINGERS 1,000 ML IV ONE (19:23)
--- NOTE | 2023-02-02 19:24 | OPERATIVE REPORT ---
Operative Report - General Procedure Date: 02/02/23 Planned Procedure: Laparoscopic appendectomy Pre-Op Diagnosis: Acute appendicitis Procedure Performed: Laparoscopic appendectomy Post Op Diagnosis: Acute appendicitis, Nonperforated - Procedure Note Primary Surgeon: Dr. Mellissa Smiley Anesthesia Provider: Mercy Colvin CRNA Anesthesia Technique: General ET tube, Local Pathology: appendix and contents Estimated Blood Loss (mL): 15 Urine Output (mL): 10 Indications: The patient had a cute onset of abdominal pain yesterday evening. This kept her up most of the night. Her pain was associated with nausea but no vomiting. Over the subsequent 18 hours her pain migrated to the lower abdomen and then more specifically to the right lower abdomen. She was noted to have an elevated white blood cell count. MRI of the abdomen and pelvis also revealed signs of early acute appendicitis. The patient was seen and evaluated in the emergency department. We discussed the risks, benefits, and alternatives of laparoscopic appendectomy including bleeding, infection, damage to surrounding structures, and the need for further surgeries or procedures. We also discussed the possibility of managing appendicitis with antibiotics alone. The patient voiced understanding, her questions were answered, and she wished to proceed with surgery. A consent was signed by the patient prior to surgery. Findings: Acute appendicitis, nonperforated Complications: none - Other Other Information/Narrative: The patient was brought to the operative suite and placed in the supine position. General endotrachealanesthesia was induced. A Lopez catheter was placed. Preoperative antibiotics were given. ERAS protocol was not followed due to the patient's pre op nausea. A preop surgical timeout was performed. Local anesthetic was injected into the skin and subcutaneous tissues just superior to the umbilicus. An 11 blade scalpel was used to make a 5 mm transverse skin incision in this location. Next, a hemostat was used to spread the tissues down to the level of the fascia and a Lex clamp was used to grasp and elevate the umbilical stalk. A Varess needle was used to gain access to the peritoneal space. Low flow insufflation revealed low pressures and then high flow insufflation was undertaken to 15 mmHg. Next, the Varess needle was removed and a 5 mm laparoscopic port was inserted in this location. Through this port, a 5 mm 30 degree laparoscope was inserted. On inspection of the abdomen no injury was caused on entry. Next, the patient was placed in Trendelenburg and rotated slightly to the left. 2 more ports were inserted. A 5 mm port was inserted in the suprapubic region, and a 12 mm port was inserted in the left lower quadrant. Both ports were placed by first anesthetizing the skin and subcutaneous tissues with local anesthetic, then by making an appropriate length incision with an 11 blade scalpel, and finally by placing the port under direct laparoscopic vision. Once the ports were in place, 2 atraumatic graspers were used to identify the area of concern. The appendix, terminal ileum, and cecum were identified. There was marked inflammation. Gentle dissection with an atraumatic grasper and sharp dissection with a [place] harmonic scalpel was used to free the lateral attachments of the appendix and to divide mesoappendix, taking care to stay close to the appendix. Then, the base of the appendix was divided with the stapler, using a blue load. Great care was taken to ensure that only the base of the appendix was within the jaws of the stapler and then it was fired. The staple line was inspected and noted to be oozing. 2 hemostatic clips were placed. Hemostats is was then confirmed. Next, the appendix was placed in an Endo Catch bag and removed through the left lower quadrant port. The left lower quadrant port was then reinserted. Again, the staple line was inspected and noted to be hemostatic. A small amount of blood was suctioned from the right lower quadrant. There was no significant fluid in the pelvis. Next, a laparoscopic fascial closure device was used to place a single, in terrupted 0 Vicryl suture at the left lower quadrant port. This reapproximated the fascia well. The remaining ports were removed under direct laparoscopic vision and the abdomen was deflated. Next, the skin edges were reapproximated with 4-0 Monocryl in an interrupted subcuticular fashion. A sterile dressing of skin glue was placed. The Lopez catheter was removed at the end of the case. The patient was extubated in the operating room and transferred to the recovery room in stable condition. There were no complications.
--- NOTE | 2023-02-02 20:03 | ANESTHESIA POST OP EVALUATION ---
Anesthesia Post Eval - Post Anesthesia Eval Vitals: Last Vital Signs Temp 37 C 02/02/23 19:50 Pulse 102 H 02/02/23 19:56 Resp 22 02/02/23 19:56 BP 115/65 02/02/23 19:56 Pulse Ox 98 02/02/23 19:56 O2 Flow Rate 2 02/02/23 10:41 CV Function Including HR & BP: Stable Pain Control: Satisfactory Nausea & Vomiting: Negative Mental Status: Baseline Respiratory Status: Airway Patent Hydration Status: Satisfactory Anesthesia Complications: None
[2023-02-02] MEDS: SODIUM CHLORIDE 0.9% 1,000 ML IV SCH (20:33)
[2023-02-02] MEDS: HYDROcod/ACETAM 5/325 MG TABLET PO PRN (22:27)
[2023-02-03] MEDS: HYDROcod/ACETAM 5/325 MG TABLET PO PRN (03:15)
[2023-02-03] MEDS: SODIUM CHLORIDE 0.9% 1,000 ML IV SCH (04:29)
[2023-02-03 04:38] VITALS: O2SAT 96
[2023-02-03] MEDS ORDERED: oxyCODONE 5 MG TABLET PO PRN (07:04)
[2023-02-03] MEDS ORDERED: ACETAMINOPHEN 500 MG TABLET PO PRN (07:04)
[2023-02-03 07:49] VITALS: BP 117/76
[2023-02-03] MEDS ORDERED: PANTOPRAZOLE 40 MG TABLET PO SCH (08:00)
[2023-02-03] MEDS ORDERED: IBUPROFEN 600 MG TABLET PO SCH (08:00)
[2023-02-03] MEDS ORDERED: amLODIPine 5 MG TABLET PO SCH (09:00)
[2023-02-03] MEDS ORDERED: VENLAFAXINE 37.5 MG TABLET PO SCH (09:00)
[2023-02-03] MEDS ORDERED: LOSARTAN 50 MG TABLET PO SCH (09:00)
== END 2023-02-03 10:15 | disposition home or self-care (01) ==
LOC: ED 08:29 → SDS 16:50 → MS2 20:07 → SDS 02-03 10:15
PROVIDERS: ATTEND Surgery
PROC: 0DTJ4ZZ Resection of Appendix, Percutaneous Endoscopic Approach (ICD-10-PCS; principal; 2023-02-02 18:00)
DX: K35.80 Unspecified acute appendicitis (principal); I10 Essential (primary) hypertension; F32.A Depression, unspecified; K21.9 Gastro-esophageal reflux disease without esophagitis
CPT/HCPCS: 36415; 44970; 72195; 74181; 80053; 81003; 83690; 85025; 96374; 96375; 96376; 99285; A9270; J0131; J1170; J7120; 81001; 87086